=== PATIENT | male | born 1930 | race Caucasian/White ===

== ENCOUNTER → 2017-04-07 | Day surgery (SDC) | payer MEDICARE, OTHER ==
[~2017-04-07] MED LIST: Lactated Ringers 1,000 ML IV SCH; Propofol 200 MG/20 ML SDV IV ONE
--- NOTE | 2017-04-07 12:28 | OR ---
DATE OF OPERATION: 04/07/2017 PREOPERATIVE DIAGNOSIS: HISTORY OF COLON CANCER. POSTOPERATIVE DIAGNOSIS: HISTORY OF COLON CANCER. SURGEON: Kai Smith MD PROCEDURE: FULL-LENGTH COLONOSCOPY. 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 COMPLICATIONS: None. SPECIMEN: None. FINDINGS: Normal full length colonoscopy. RECOMMENDATIONS: Followup colonoscopy every 3 years as patient desires. INDICATIONS: The patient has a history of colon cancer status post partial colectomy. He has had routine follow up scopes every 3 years which have all been normal. DESCRIPTION OF PROCEDURE: The patient was prepped and draped, placed in the left lateral decubitus position. A lubricated Olympus colonoscope was inserted and easily advanced to the cecum. Direct visualization of the ileocecal valve and appendiceal orifice was accomplished. The bowel prep was excellent. Upon withdrawal, the cecum, ascending, and transverse colons were completely benign. It looks like this patient's anastomosis site was just past the splenic flexure, the entire left colon showed no signs of any polyps, mass, ulceration, bleeding sites, no vascular abnormalities or signs of colitis. There was no signs of any recurrent colon lesions, rectal vault was benign, retroflexion of the scope in the rectum showed no anal lesions. Air was suctioned and scope removed without complication. ELISSA/DAVID /[id number]
== END ==
LOC: CC.SDS 09:16
PROVIDERS: ATTEND Family Medicine
DX: Z12.11 Encounter for screening for malignant neoplasm of colon (principal); N42.9 Disorder of prostate, unspecified; I50.9 Heart failure, unspecified; I11.0 Hypertensive heart disease with heart failure; F17.200 Nicotine dependence, unspecified, uncomplicated; Z79.899 Other long term (current) drug therapy; Z85.038 Personal history of other malignant neoplasm of large intestine; Z85.46 Personal history of malignant neoplasm of prostate; Z86.73 Personal history of transient ischemic attack (TIA), and cerebral infarction without residual deficits
CPT/HCPCS: 45378; J2704; J7120; 00810

== ENCOUNTER 2020-01-26 20:30 | Emergency (ER) | payer MEDICARE, OTHER ==
--- NOTE | 2020-01-26 21:02 | EDM.PDOC ---
ED HPI GENERAL MEDICAL PROBLEM - General Chief Complaint: Gastrointestinal Problem Stated Complaint: rectal bleeding Time Seen by Provider: 01/26/20 20:35 Source of Information: Reports: Patient History Limitations: Reports: No Limitations - History of Present Illness INITIAL COMMENTS - FREE TEXT/NARRATIVE: Pt gave himself an enema last night and had "good bowel movement". Then today has noted that everytime he goes to the bathroom he has bright red blood in the stool and in his underwear. He denies that it happens unless he has to go to the bathroom. Denies any pain. Denies knowledge of having hemorrhoids in the past. Has not had an issues with rectal bleeding in the past. No lightheadedness noted. States that he feels well at this time. Onset: Today Treatments GENERATION TECHNICIAN: Reports: Other Medication(s) Other Treatments GENERATION TECHNICIAN: enema - Related Data Allergies Allergy/AdvReac Type Severity Reaction Status Date / Time No Known Allergies Allergy Verified 01/26/20 20:57 Home Meds: Home Meds Aspirin 0.5 tab PO DAILY 04/06/17 [History] Furosemide 20 mg PO DAILY 04/06/17 [History] Isosorbide Mononitrate [Imdur] 30 mg PO DAILY 04/06/17 [History] Lisinopril 5 mg PO DAILY 04/06/17 [History] Mexiletine HCl 150 mg PO BID 04/06/17 [History] carvediloL [Carvedilol] 6.25 mg PO BID 04/06/17 [History] Past Medical History Cardiovascular History: Reports: Pacemaker - History Comment History Comment: please see the RN notes for past medical and surgical history. Social & Family History - Tobacco Use Smoking Status *Q: Former Smoker Used Tobacco, but Quit: Yes Month/Year Tobacco Last Used: 1989 - Caffeine Use Caffeine Use: Reports: Soda - Alcohol Use Days Per Week of Alcohol Use: 7 Number of Drinks Per Day: 1 Total Drinks Per Week: 7 - Recreational Drug Use Recreational Drug Use: No ED ROS GENERAL - Review of Systems Review Of Systems: See Below Constitutional: Denies: Fever, Chills, Weakness Respiratory: Reports: No Symptoms Cardiovascular: Reports: No Symptoms GI/Abdominal: Reports: Bloody Stool (bright red blood), Constipation. Denies: Diarrhea, Decreased Appetite, Nausea, Vomiting : Reports: No Symptoms Musculoskeletal: Reports: No Symptoms Neurological: Denies: Dizziness, Syncope, Weakness ED EXAM, GI/ABD - Physical Exam Exam: See Below Exam Limited By: No Limitations General Appearance: Alert, WD/WN, No Apparent Distress Head: Atraumatic, Normocephalic Neck: Supple, Non-Tender Respiratory/Chest: No Respiratory Distress, Lungs Clear, Normal Breath Sounds Cardiovascular: Regular Rate, Rhythm, No Edema GI/Abdominal Exam: Normal Bowel Sounds, Soft, Non-Tender Rectal (Males) Exam: Heme + Stool, Hemorrhoids (internally). No: Rectal Fissure, Tenderness Back Exam: Normal Inspection Extremities: Normal Inspection, No Pedal Edema Neurological: Alert, Oriented Skin Exam: Warm, Dry, Intact Course - Vital Signs Last Recorded V/S: Last Vital Signs Temp 98.2 F 01/26/20 20:30 Pulse 83 01/26/20 20:30 Resp 20 01/26/20 20:30 BP 154/90 H 01/26/20 20:30 Pulse Ox 97 01/26/20 20:30 - Orders/Labs/Meds Orders: Active Orders 24 hr Category Date Time Status CBC WITH AUTO DIFF [HEME] Stat Lab 01/26/20 20:40 Ordered COMPREHENSIVE METABOLIC PN,CMP [CHEM] Stat Lab 01/26/20 20:40 Ordered OCCULT BLD DIAGNOS Stat Lab 01/26/20 20:40 Ordered Departure - Departure Time of Disposition: 21:20 Disposition: Home, Self-Care 01 Condition: Good Clinical Impression: Hemorrhoids Qualifiers: Hemorrhoid type: unspecified Qualified Code(s): K64.9 - Unspecified hemorrhoids - Discharge Information *PRESCRIPTION DRUG MONITORING PROGRAM REVIEWED*: Not Applicable *COPY OF PRESCRIPTION DRUG MONITORING REPORT IN PATIENT CORRINA: Not Applicable Instructions: Hemorrhoids, [id number] Forms: ED Department Discharge Additional Instructions: use anusol suppositories twice a day for the next 5 days. 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 Sepsis Event Note (ED) - Evaluation Sepsis Screening Result: No Definite Risk - Focused Exam Vital Signs: Vital Signs Temp Pulse Resp BP Pulse Ox 01/26/20 20:30 98.2 F 83 20 154/90 H 97 - Problem List & Annotations (1) Hemorrhoids SNOMED Code(s): 91027832 Code(s): K64.9 - UNSPECIFIED HEMORRHOIDS Status: Acute Current Visit: Yes Qualifiers: Hemorrhoid type: unspecified Qualified Code(s): K64.9 - Unspecified hemorrhoids - Problem List Review Problem List Initiated/Reviewed/Updated: Yes - My Orders Last 24 Hours: My Active Orders 01/26/20 20:40 CBC WITH AUTO DIFF [HEME] Stat COMPREHENSIVE METABOLIC PN,CMP [CHEM] Stat OCCULT BLD DIAGNOS Stat - Assessment/Plan Last 24 Hours: My Active Orders 01/26/20 20:40 CBC WITH AUTO DIFF [HEME] Stat COMPREHENSIVE METABOLIC PN,CMP [CHEM] Stat OCCULT BLD DIAGNOS Stat
[2020-01-26] MEDS: Hydrocortisone Acetate 25 MG Supp RECTAL SCH (21:38)
== END 2020-01-26 21:40 | disposition home or self-care (01) ==
LOC: CC.ED 20:30
DX: K64.8 Other hemorrhoids (principal); Z79.82 Long term (current) use of aspirin; Z79.899 Other long term (current) drug therapy; Z87.891 Personal history of nicotine dependence
CPT/HCPCS: 36415; 80053; 82272; 85025; 99283; A9270-GY